=== PATIENT | male | born 1995 | race Caucasian/White ===

== ENCOUNTER 2021-03-19 05:04 | Emergency (ER) | payer OTHER ==
[~2021-03-19] VITALS: Ht 177.8 cm; Wt 116.8 kg
[~2021-03-19 05:04] MED LIST: GENTAK5 ML OPTH
[2021-03-19] MEDS ORDERED: LATUDA60 MG PO (05:19)
[2021-03-19] MEDS ORDERED: SERTRALINE HCL100 MG PO (05:19)
[2021-03-19] MEDS ORDERED: PRAZOSIN HCL5 MG PO (05:19)
[2021-03-19] MEDS ORDERED: BACTRIM DS TAB1 EACH PO (05:54)
[2021-03-19] MEDS ORDERED: CEPHALEXIN500 MG PO (05:54)
== END 2021-03-19 06:19 | disposition home or self-care (01) ==
LOC: ED 05:04
DX: L72.0 Epidermal cyst (principal); F17.200 Nicotine dependence, unspecified, uncomplicated; Z79.899 Other long term (current) drug therapy
CPT/HCPCS: 10060; 99283-25; A9270

== ENCOUNTER 2021-10-13 07:55 | Emergency (ER) | payer OTHER ==
[~2021-10-13] VITALS: Ht 177.8 cm; Wt 110.2 kg
[~2021-10-13 07:55] MED LIST changes: +BACTRIM DS TAB1 EACH PO; +CEPHALEXIN500 MG PO; +LATUDA60 MG PO; +PRAZOSIN HCL5 MG PO; +SERTRALINE HCL100 MG PO
[2021-10-13] MEDS ORDERED: ZOLOFT100 MG PO (08:06)
--- NOTE | 2021-10-15 07:09 | EKG ---
[facility] [address] [facility] [place] [address] Signed Sinus bradycardia Otherwise normal ECG No previous ECGs available Confirmed by MALDONADO LEUNG MD ([id number] on 10/15/2021 7:09:35 AM Electronically Signed By: MALDONADO LEUNG MD 10/15/2109 PATIENT NAME: GHISLAINE OWENS Electrocardiogram DATE OF : [birth year] PHYSICIAN: MALDONADO LEUNG MD REPORT #: [id number] REPORT IS CONFIDENTIAL AND NOT TO BE RELEASED WITHOUT AUTHORIZATION
== END 2021-10-13 09:22 | disposition home or self-care (01) ==
LOC: ED 07:55
DX: R07.1 Chest pain on breathing (principal); F17.200 Nicotine dependence, unspecified, uncomplicated; Z91.030 Bee allergy status
CPT/HCPCS: 36415; 71045; 80053; 83735; 84484; 85025; 93005; 93010; 99285-25

== ENCOUNTER 2024-05-21 07:20 | Emergency (ER) | payer OTHER, BC ==
[~2024-05-21] VITALS: Ht 177.8 cm; Wt 115.3 kg
[~2024-05-21 07:20] MED LIST changes: +ZOLOFT100 MG PO
[2024-05-21] MEDS ORDERED: DOXAZOSIN MESYLA4 MG PO (08:34)
[2024-05-21] MEDS ORDERED: LITHIUM CARBON300 MG PO (08:34)
[2024-05-21] MEDS ORDERED: FLUVOXAMINE MA100 MG PO (08:34)
[2024-05-21] MEDS ORDERED: METHOCARBAMOL500 MG PO (09:15)
[2024-05-21 09:23] VITALS: BP 120/88
== END 2024-05-21 09:23 | disposition home or self-care (01) ==
LOC: ED 07:20
DX: S39.012A Strain of muscle, fascia and tendon of lower back, initial encounter (principal); F17.200 Nicotine dependence, unspecified, uncomplicated; Z91.030 Bee allergy status; Z79.899 Other long term (current) drug therapy; X50.0XXA Overexertion from strenuous movement or load, initial encounter; Y99.0 Civilian activity done for income or pay
CPT/HCPCS: 72100; 99283

== ENCOUNTER 2024-10-25 14:44 | Emergency (ER) | payer OTHER ==
[~2024-10-25] VITALS: Ht 177.8 cm; Wt 123.1 kg
[~2024-10-25 14:44] MED LIST changes: +DOXAZOSIN MESYLA4 MG PO; +FLUVOXAMINE MA100 MG PO; +LITHIUM CARBON300 MG PO; +METHOCARBAMOL500 MG PO
[2024-10-25] MEDS ORDERED: LURASIDONE HCL120 MG PO (14:57)
[2024-10-25 15:09] LABS: BASOPHILS 0.8 % (0.2-1.2); EOSINOPHILS 2.3 % (0.8-7.0); LYMPHOCYTES 36.8 % (21.8-53.1); MCH 28.8 PG (25.7-32.2); MCHC 34.3 g/dL (32.3-36.5); MCV 83.8 fL (79.0-92.2); MONOCYTES 5.7 % (5.3-12.2); NEUTROPHILS 54.0 % (34.0-67.9); RBC 5.49 M/uL (4.63-6.08)
[2024-10-25 15:33] LABS: ALCOHOL, MEDICAL <3 ng/dL (<3); ALT (SGPT) 31 U/L (14-59); AST (SGOT) 10 U/L (15-37); GLOMERULAR FILTRATION RATE,EST 81 mL/min (>60); PROTEIN, TOTAL 7.6 g/dL (6.4-8.2); TSH, 3RD GENERATION 3.634 uIU/mL (0.358-3.740); UREA NITROGEN 10 mg/dL (7-18)
[2024-10-25 16:47] LABS: BLOOD/HGB, URINE TRACE-I (Negative); KETONE, URINE NEGATIVE (Negative); LEUK ESTERASE, URINE NEGATIVE (negative); NITRITE, URINE NEGATIVE (negative)
[2024-10-25 16:50] LABS: BACTERIA, URINE NONE SEEN /hpf (negative); CASTS, URINE NONE SEEN \\lpf; CRYSTALS, URINE NONE SEEN (0-1+); EPITHELIAL CELLS, URINE 0 /lpf (0-1+); REFLEX CULTURE, URINE No (No)
[2024-10-25 16:55] LABS: AMPHETAMINES, URINE NEGATIVE (NEGATIVE); BARBITURATES, URINE NEGATIVE (NEGATIVE); BENZODIAZEPINE, URINE NEGATIVE (NEGATIVE); CANNABINOID, URINE POSITIVE (NEGATIVE); COCAINE, URINE NEGATIVE (NEGATIVE); ECSTASY, URINE NEGATIVE (NEGATIVE); FENTANYL, URINE NEGATIVE (NEGATIVE); METHADONE, URINE NEGATIVE (NEGATIVE); OPIATES, URINE NEGATIVE (NEGATIVE); OXYCODONE, URINE NEGATIVE (NEGATIVE); PHENCYCLIDINE, URINE NEGATIVE (NEGATIVE)
[2024-10-25 20:05] VITALS: BP 135/81
--- NOTE | 2024-10-26 14:06 | EKG ---
[facility] [address] [facility] [place] [address] Signed Normal sinus rhythm Nonspecific ST abnormality Abnormal ECG When compared with ECG of 13-OCT-2021 07:53, No significant change was found Confirmed by Florentin Kramer MD () on 10/26/2024 2:05:52 PM Electronically Signed By: FLORENTIN KRAMER MD 10/26/24 1406 PATIENT NAME: DRAKEGERRYGHISLAINE Electrocardiogram DATE OF : [birth year] PHYSICIAN: FLORENTIN KRAMER MD REPORT #: [id number] REPORT IS CONFIDENTIAL AND NOT TO BE RELEASED WITHOUT AUTHORIZATION
== END 2024-10-25 20:07 | disposition home or self-care (01) ==
LOC: ED 14:44
PROVIDERS: Emergency Medicine
DX: T50.992A Poisoning by other drugs, medicaments and biological substances, intentional self-harm, initial encounter (principal); F17.200 Nicotine dependence, unspecified, uncomplicated; F43.10 Post-traumatic stress disorder, unspecified; Z91.030 Bee allergy status; Z79.899 Other long term (current) drug therapy
CPT/HCPCS: 36415; 80053; 80307; 81001; 84443; 85025; 93005; 93010; 99285; G0480